=== PATIENT | female | born 1950 ===

== ENCOUNTER 2018-03-14 11:50 | Emergency (ER) | payer MEDICARE ==
[2018-03-14 11:53] VITALS: BMI 24.2
[2018-03-14] MEDS ORDERED: Albuterol 0.083% Inhal Sol (2.5 mg/3 mL) UD INH STA (12:36)
--- NOTE | 2018-03-14 12:36 | ED PDOC ---
Arrival/HPI - General Chief Complaint: Cough, Cold, Congestion Time Seen by Provider: 03/14/18 12:17 Historian: Patient - History of Present Illness Narrative History of Present Illness (Text): 03/14/18 12:29 This 67 yo female with pmh asthma, pulmonary Fibrosis, presents to this ED c/o cough x 1 month. Patient saw her PMD x 2 weeks ago due to cough and fever. She said she was prescribed Prednisone 5 mg daily x 3 days, Augmentin 875 bid x 7 days, and cough medication elixir. Patient stated medication did not help her symptoms. Patient denies CP, recent travel, leg swelling, calf pain, SYLVESTER, orthopnea, recent trauma, recent surgery, or abnormal gait. Time/Duration: Other (noncontributory) Context: Home Past Medical History - Provider Review Nursing Documentation Reviewed: Yes - Infectious Disease Hx of Infectious Diseases: None - Pulmonary Hx Asthma: Yes - Psychiatric Hx Depression: No Hx Emotional Abuse: No Hx Physical Abuse: No Hx Substance Use: No - Surgical History Hx Appendectomy: Yes Hx Section: Yes - Suicidal Assessment Feels Threatened In Home Enviroment: No Family/Social History - Physician Review Nursing Documentation Reviewed: Yes Family/Social History: Other (noncontributory) Smoking Status: Never Smoked Hx Alcohol Use: No Hx Substance Use: No Hx Substance Use Treatment: No Allergies/Home Meds Allergies/Adverse Reactions: Allergies No Known Allergies Allergy (Verified 03/14/18 12:21) Review of Systems - Review of Systems Constitutional: Normal. absent: Fatigue, Weight Change, Fevers Eyes: Normal ENT: Normal Respiratory: Cough, Wheezing. absent: SOB, Sputum Cardiovascular: Normal. absent: Chest Pain, Palpitations, Edema, Calf Pain, SYLVESTER , Orthopnea, Syncope Gastrointestinal: Normal. absent: Abdominal Pain, Nausea, Vomiting Genitourinary Female: Normal. absent: Dysuria, Frequency, Hematuria, Urine Output Changes, Vaginal Bleeding, Vaginal Discharge Musculoskeletal: Normal Skin: Normal. absent: Rash Neurological: Normal. absent: Headache, Dizziness, Focal Weakness, Gait Changes , Speech Changes, Facial Droop, Disequilibrium, Seizure Endocrine: Normal Hemo/Lymphatic: Normal Psychiatric: Normal Physical Exam Vital Signs Temp Pulse Resp BP Pulse Ox 03/14/18 15:34 98.4 F 100 H 24 132/63 95 03/14/18 12:13 98.8 F 98 H 18 127/56 L 97 Temperature: Afebrile Blood Pressure: Normal Pulse: Regular Respiratory Rate: Normal Appearance: Positive for: Well-Appearing, Non-Toxic, Comfortable Pain Distress: None Mental Status: Positive for: Alert and Oriented X 3 - Systems Exam Head: Present: Atraumatic, Normocephalic Pupils: Present: PERRL Extroacular Muscles: Present: EOMI Conjunctiva: Present: Normal Mouth: Present: Moist Mucous Membranes Neck: Present: Normal Range of Motion Respiratory/Chest: Present: Good Air Exchange, Wheezes (mild wheezing RLL). No : Respiratory Distress, Accessory Muscle Use, Rales, Retracting, Rhonchi, Tachypneic Cardiovascular: Present: Regular Rate and Rhythm, Normal S1, S2. No: Murmurs Abdomen: No: Tenderness, Distention, Peritoneal Signs, Rebound Back: Present: Normal Inspection Upper Extremity: Present: Normal Inspection, Normal ROM. No: Cyanosis, Edema Lower Extremity: Present: Normal Inspection, NORMAL PULSES, Normal ROM, Neurovascularly Intact, Capillary Refill < 2 s. No: Edema, CALF TENDERNESS Neurological: Present: GCS=15, CN II-XII Intact, Speech Normal, Motor Func Grossly Intact, Normal Sensory Function, Normal Cerebellar Funct, Gait Normal, Memory Normal Skin: Present: Warm, Dry, Normal Color. No: Rashes Psychiatric: Present: Alert, Oriented x 3, Normal Insight, Normal Concentration Medical Decision Making ED Course and Treatment: 03/14/18 12:39 I reviewed with patient the risk associated with the use of Prednisone including AVN, glaucoma, DM, osteoporosis. Patient understood risk, and she agreed to take Prednisone due to her symptoms are getting worse. I told patient she could stop taking Prednisone at anytime if symptoms improves 03/14/18 17:01 Re-evaluation. Patient feels better. Discussed results and plan with patient who expresses understanding. All questions answered and there is agreement with the plan to discharge home with instructions. Patient stable for discharge. Return if symptoms persist or worsen. I reviewed with patient the risk of tendinitis, and tendon rupture if she take Levaquin for up to 2 months. Patient was recommended to avoid strenuous activities. To return to emergency if she develops fever, SOB, or worsening of symptoms. Re-evaluation Time: 17:03 Reassessment Condition: Re-examined, Improved - Lab Interpretations Lab Results: 03/14/18 14:35 03/14/18 14:35 Lab Results 03/14/18 14:35: pO2 36, VBG pH 7.41, VBG pCO2 41.0, VBG HCO3 26.0, VBG Total CO2 27.3, VBG O2 Sat (Calc) 79.4 H, VBG Base Excess 1.2, VBG Potassium 4.2, Sodium 137.0, Chloride 104.0, Glucose 129 H, Lactate 1.4, FiO2 21.0, Venous Blood Potassium 4.2 03/14/18 14:35: Sodium 139, Chloride 102, Potassium 4.1, Carbon Dioxide 24, Anion Gap 17, BUN 9, Creatinine 0.6 L, Est GFR ( Amer) > 60, Est GFR (Non -Af Amer) > 60, Random Glucose 127 H, Calcium 9.5, Magnesium 2.2, Total Bilirubin 0.2, AST 21, ALT 19, Alkaline Phosphatase 75, Total Protein 8.4 H, Albumin 4.4, Globulin 4.0, Albumin/Globulin Ratio 1.1 03/14/18 14:35: WBC 13.6 H D, RBC 3.99, Hgb 11.9 L, Hct 35.9 L, MCV 90.0, MCH 29.8, MCHC 33.1, RDW 13.4, Plt Count 225, MPV 10.0, Gran % 89.4 H, Lymph % (Auto ) 7.5 L, [place] % (Auto) 2.9, Eos % (Auto) 0.1 L, Baso % (Auto) 0.1, Gran # 12.18 H, Lymph # (Auto) 1.0 L, [place] # (Auto) 0.4, Eos # (Auto) 0.0, Baso # (Auto) 0.01 I have reviewed the lab results: Yes Interpretation: No clinic. lab abnormalty - RAD Interpretation Narrative RAD Interpretations (Text): 03/14/18 16:42 PROCEDURE: CT Chest with contrast HISTORY: cough x 2 months/ abnormal cxr COMPARISON: Portable chest film 03/14/[address] 05/06/2015 TECHNIQUE: Contiguous axial images were obtained through the chest with intravenous contrast enhancement. Sagittal and coronal reconstructions were performed. IV contrast: 100 cc of Omni 350 Radiation dose (DLP): 145 mGy-cm. This CT exam was performed using one or more of the following dose reduction techniques: Automated exposure control, adjustment of the mA and/or kV according to patient size, and/or use of iterative reconstruction technique. FINDINGS: LUNGS: There is a pattern of pulmonary fibrosis which has increased since the previous CT. There is dense consolidation and bronchiectasis at the right lung base. MEDIASTINUM: Unremarkable thoracic aorta. No aneurysm or dissection. Normal sized heart. Main pulmonary artery unremarkable. No vascular congestion. There is right hilar adenopathy measuring up to 16 mm. There is sub carinal adenopathy measuring 17 x 27 mm. PLEURA: No pleural fluid. No pneumothorax. BONES: No fracture. No destructive lesion. UPPER ABDOMEN: Grossly unremarkable. OTHER FINDINGS: None. IMPRESSION: There is right hilar adenopathy measuring up to 16 mm. There is sub carinal adenopathy measuring 17 x 27 mm. There is a pattern of pulmonary fibrosis which has increased since the previous CT. There is dense consolidation and bronchiectasis at the right lung base. Radiology Orders: 03/14/18 12:36 CHEST TWO VIEWS (PA/LAT) [RAD] Stat 03/14/18 13:45 CHEST W/CONTRAST [CT] Stat - Medication Orders Current Medication Orders: Discontinued Medications Albuterol Sulfate (Albuterol 0.083% Inhal Mora (2.5 Mg/3 Ml) Ud) 2.5 mg INH STAT STA Stop: 03/14/18 12:37 Last Admin: 03/14/18 13:04 Dose: 2.5 mg Prednisone (Prednisone Tab) 60 mg PO STAT ONE Stop: 03/14/18 12:38 Last Admin: 03/14/18 13:03 Dose: 60 mg Disposition/Present on Arrival - Present on Arrival Any Indicators Present on Arrival: No History of DVT/PE: No History of Uncontrolled Diabetes: No Urinary Catheter: No History of Decub. Ulcer: No History Surgical Site Infection Following: None - Disposition Have Diagnosis and Disposition been Completed?: Yes Diagnosis: Pulmonary fibrosis, Consolidation lung, Bronchiolectasis, Hilar adenopathy Disposition Time: 17:04 Patient Plan: Discharge Patient Problems: Current Active Problems Problem Status Onset Pulmonary fibrosis Acute Condition: IMPROVED Discharge Instructions (ExitCare): Idiopathic Pulmonary Fibrosis, Pneumonia in Adults Additional Instructions: Call private Doctor for follow up visit in 1 day. Also call private Production Control Manager for revaluation. Take medication as instructed with food. Make sure to get Vaccination against influenza and pneumococcal infection. Continue with home medication as instructed with your doctor. Return to emergency if you develop fever, coughing up blood, chest pain, or worsening of symptoms. Remember Prednisone could cause damage to hip bone, diabetes, glaucoma, or worsening of osteoporosis, so take Prednisone with caution. You could stop Prednisone at anytime if symptoms improved. Also remember Levaquin could give you a risk for tendon rupture or tendonitis. Avoid strenuous activities. Prescriptions: Albuterol HFA [Ventolin HFA 90 mcg/actuation (8 g)] 2 puff IH [id number] #120 puff levoFLOXacin [Levaquin] 750 mg PO DAILY #4 tab predniSONE [predniSONE Tab] 40 mg PO DAILY #8 tab Referrals: Anabela Womack DO [Primary Care Provider] - Follow up with primary Forms: [facility] ([employer])
--- NOTE | 2018-03-14 13:43 | RAD ---
HISTORY: cough COMPARISON: 03/05/2015 TECHNIQUE: Chest PA and lateral FINDINGS: LUNGS: Chronic interstitial changes are seen bilaterally consistent with pulmonary fibrosis. There is also volume loss on the right side. PLEURA: No significant pleural effusion identified. No pneumothorax apparent. CARDIOVASCULAR: Normal. OSSEOUS STRUCTURES: No significant abnormalities. VISUALIZED UPPER ABDOMEN: Normal. OTHER FINDINGS: None. IMPRESSION: Chronic interstitial changes are seen bilaterally consistent with pulmonary fibrosis. There is also volume loss on the right side.
[2018-03-14] MEDS ORDERED: Iohexol 350 MG/100 ML VIAL ONE (14:04)
[2018-03-14 15:08] LABS: VENOUS BLOOD GAS BASE EXCESS 1.2 mmol/L (0.0-2.0); VENOUS BLOOD GAS PO2 36 mm/Hg (30-55); VENOUS BLOOD PH 7.41 (7.32-7.43)
[2018-03-14 15:10] LABS: BASO # 0.01 K/mm3 (0.0-2.0); BASO % 0.1 % (0.0-3.0); EOS % 0.1 % (1.5-5.0); GRAN # 12.18 (1.4-6.5); GRAN % 89.4 % (50.0-68.0); HEMOGLOBIN 11.9 g/dL (12.0-16.0); LYMPH % 7.5 % (22.0-35.0); MEAN CORPUSCULAR HEMOGLOBIN 29.8 pg (25.0-35.0); MEAN CORPUSCULAR HGB CONC 33.1 g/dl (31.0-37.0); MONO # 0.4 (0.1-0.6); MONO % 2.9 % (1.0-6.0); RBC 3.99 10^6/uL (3.5-6.1); RED CELL DISTRIBUTION WIDTH 13.4 % (11.5-14.5); WHITE BLOOD COUNT 13.6 10^3/ul (4.5-11.0)
[2018-03-14 15:22] LABS: ALB/GLOB RATIO 1.1 (1.1-1.8); ALBUMIN 4.4 g/dL (3.0-4.8); ALT/SGPT 19 U/L (7-56); AST/SGOT 21 U/L (14-36); BLOOD UREA NITROGEN 9 mg/dL (7-21); CALCIUM 9.5 mg/dL (8.4-10.5); GFR AFRICAN-AMERICAN > 60; GFR NON-AFRICAN AMERICAN > 60
--- NOTE | 2018-03-14 16:40 | CT ---
PROCEDURE: CT Chest with contrast HISTORY: cough x 2 months/ abnormal cxr COMPARISON: Portable chest film 03/14/[address] 05/06/2015 TECHNIQUE: Contiguous axial images were obtained through the chest with intravenous contrast enhancement. Sagittal and coronal reconstructions were performed. IV contrast: 100 cc of Omni 350 Radiation dose (DLP): 145 mGy-cm. This CT exam was performed using one or more of the following dose reduction techniques: Automated exposure control, adjustment of the mA and/or kV according to patient size, and/or use of iterative reconstruction technique. FINDINGS: LUNGS: There is a pattern of pulmonary fibrosis which has increased since the previous CT. There is dense consolidation and bronchiectasis at the right lung base. MEDIASTINUM: Unremarkable thoracic aorta. No aneurysm or dissection. Normal sized heart. Main pulmonary artery unremarkable. No vascular congestion. There is right hilar adenopathy measuring up to 16 mm. There is sub carinal adenopathy measuring 17 x 27 mm. PLEURA: No pleural fluid. No pneumothorax. BONES: No fracture. No destructive lesion. UPPER ABDOMEN: Grossly unremarkable. OTHER FINDINGS: None. IMPRESSION: There is right hilar adenopathy measuring up to 16 mm. There is sub carinal adenopathy measuring 17 x 27 mm. There is a pattern of pulmonary fibrosis which has increased since the previous CT. There is dense consolidation and bronchiectasis at the right lung base.
[2018-03-14] MEDS ORDERED: levoFLOXacin 750 MG TAB PO STA (17:00)
[2018-03-14 18:13] VITALS: BP 136/70; PULSE 89; RESP 18; TEMP 98.2; O2SAT 99
== END 2018-03-14 18:11 | disposition home or self-care (01) ==
LOC: ED 11:50
DX: J84.10 Pulmonary fibrosis, unspecified (principal); R59.9 Enlarged lymph nodes, unspecified; J18.1 Lobar pneumonia, unspecified organism; J47.9 Bronchiectasis, uncomplicated
CPT/HCPCS: 71046; 71260; 80053; 82803; 83735; 84145; 85025; 99283; Q9967